=== PATIENT | male | born 1955 | race Caucasian/White ===

== ENCOUNTER → 2019-03-10 | Outpatient (CLI) | payer OTHER | END | disposition home or self-care (01) | LOC: RADMRIMAIN 20:51 | PROVIDERS: ATTEND Pediatrics | DX: Z53.9 Procedure and treatment not carried out, unspecified reason (principal) ==

== ENCOUNTER 2020-07-09 23:02 | Emergency (ER) | payer OTHER ==
--- NOTE | 2020-07-10 00:18 | XR ---
EXAMINATION TYPE: XR chest 2V DATE OF EXAM: 07/09/2020 COMPARISON: NONE HISTORY: Cough TECHNIQUE: 2 views FINDINGS: There is no heart failure nor confluent pneumonic infiltrate. Costophrenic angles are clear . Thoracic aorta is atheromatous. IMPRESSION: No active cardiopulmonary disease. Normal heart.
[2020-07-10] MEDS ORDERED: methylPREDNISolone SOD SUCCI 125 MG/2 ML VIAL IM STA (01:55)
--- NOTE | 2020-07-10 02:20 | ED ---
General Adult HPI - General Chief complaint: Upper Respiratory Infection Stated complaint: SOB Time Seen by Provider: 07/10/20 01:35 Source: patient, RN notes reviewed Mode of arrival: ambulatory Limitations: no limitations - History of Present Illness Initial comments: 65-year-old male with a past medical history of asthma presents to the emergency room for a chief complaint of asthma exacerbation. Patient states that about 5 days ago he developed a cough. States he has had wheezing increasing since that time. Patient states he feels like he has to cough up phlegm but is unable to. Patient reports the last time he felt like this he needed a steroid shot. Patient states he does have an inhaler but just recently got this filled again. Patient denies any fevers.Patient has no other complaints at this time including chest pain, abdominal pain, nausea or vomiting, headache, or visual changes. - Related Data Previous Rx's Medication Instructions Recorded Albuterol Inhaler [Ventolin Hfa 2 puff INHALATION RT-QID PRN #1 07/10/20 Inhaler] inhaler predniSONE 50 mg PO DAILY #5 tablet 07/10/20 Allergies Allergy/AdvReac Type Severity Reaction Status Date / Time No Known Allergies Allergy Verified 07/09/20 23:33 Review of Systems ROS Statement: Those systems with pertinent positive or pertinent negative responses have been documented in the HPI. ROS Other: All systems not noted in ROS Statement are negative. Past Medical History Past Medical History: Asthma History of Any Multi-Drug Resistant Organisms: None Reported Past Surgical History: Orthopedic Surgery Past Psychological History: No Psychological Hx Reported Smoking Status: Former smoker Past Alcohol Use History: None Reported Past Drug Use History: None Reported General Exam Limitations: no limitations General appearance: alert, in no apparent distress Head exam: Present: atraumatic, normocephalic, normal inspection Eye exam: Present: normal appearance, PERRL, EOMI. Absent: scleral icterus, conjunctival injection, periorbital swelling ENT exam: Present: normal exam, mucous membranes moist Neck exam: Present: normal inspection, full ROM. Absent: tenderness, meningismus, lymphadenopathy Respiratory exam: Present: wheezes (Patient has wheezing bilaterally in lower lung brito). Absent: respiratory distress, rales, rhonchi, stridor Cardiovascular Exam: Present: regular rate, normal rhythm, normal heart sounds. Absent: systolic murmur, diastolic murmur, rubs, gallop, clicks GI/Abdominal exam: Present: soft, normal bowel sounds. Absent: distended, tenderness, guarding, rebound, rigid Course Vital Signs 07/09/20 07/10/20 07/10/20 23:30 02:24 03:15 Temperature 98 F Pulse Rate 83 73 78 Respiratory 18 18 Rate Blood Pressure 170/120 177/100 O2 Sat by Pulse 98 92 L Oximetry 07/10/20 07/10/20 03:21 04:11 Temperature 98.1 F Pulse Rate 84 82 Respiratory 20 Rate Blood Pressure 190/89 O2 Sat by Pulse 94 L Oximetry Medical Decision Making - Medical Decision Making Patient is well-appearing. No respiratory distress. Vitals are stable. Patient is 98% on room air on presentation. Patient is hypertensive which he has a history of. This did improve throughout his stay. No chest pain. Patient is well-appearing on exam. No respiratory distress. Speaking in full sentences. A chest x-ray was obtained which showed no active cardiopulmonary disease. Normal heart. Covid test is negative. Patient was given IM Solu-Medrol. Also given DuoNeb. Patient will be discharged home to follow up with primary care. - Lab Data Lab Results 07/10/20 Range/Units 02:19 Coronavirus (PCR) Not Detected (Not Detectd) Disposition Clinical Impression: Asthma exacerbation Disposition: HOME SELF-CARE Condition: Good Instructions (If sedation given, give patient instructions): Asthma (ED) Additional Instructions: Please take steroid as directed. Use inhaler. Follow-up with your doctor in one to 2 days. If you have worsening shortness of breath return to the emergency room. Prescriptions: predniSONE 50 mg PO DAILY #5 tablet Albuterol Inhaler [Ventolin Hfa Inhaler] 2 puff INHALATION RT-QID PRN #1 inhaler PRN Reason: Shortness Of Breath Is patient prescribed a controlled substance at d/c from ED?: No Referrals: Bob Michelle MD [Primary Care Provider] - 1-2 days Time of Disposition: 02:55
[2020-07-10] MEDS ORDERED: IPRATROPIUM-ALBUTEROL 3 ML NEB INHALATION STA (03:03)
[2020-07-10 04:15] VITALS: BP 190/89; PULSE 82; RESP 20; TEMP 98.1
== END 2020-07-10 04:11 | disposition home or self-care (01) ==
LOC: EC 23:02
DX: J45.901 Unspecified asthma with (acute) exacerbation (principal); Z87.891 Personal history of nicotine dependence
CPT/HCPCS: 94640; 87635; 71046; 99285; 96372; J2930

== ENCOUNTER → 2020-11-14 | Outpatient (CLI) | payer OTHER ==
--- NOTE | 2020-11-14 21:58 | CT ---
EXAMINATION TYPE: CT brain wo con DATE OF EXAM: 11/14/2020 HISTORY: Hypertension, dizziness, low blood sugar CT DLP: 1149.80 mGycm. Automated Exposure Control for Dose Reduction was Utilized. TECHNIQUE: CT scan of the head is performed without contrast. COMPARISON: None. FINDINGS: There is no acute intracranial hemorrhage or midline shift identified. Ventricles and sul ci are within normal limits in size for patient's age. No suspicious opacification mastoid air cells bilaterally. Small focus of cerebrum in the left external auditory canal posterior wall axial image 1 1. The globes are intact and the visualized sinuses are clear. IMPRESSION: No acute intracranial hemorrhage or midline shift.
== END | disposition home or self-care (01) ==
LOC: RADCTMAIN 17:11
PROVIDERS: ATTEND Family Medicine
DX: I10 Essential (primary) hypertension (principal)
CPT/HCPCS: 70450

== ENCOUNTER 2021-01-03 07:06 | Day surgery (SDC) | payer OTHER ==
[2021-01-02 10:47] VITALS: BMI 28.3
[~2021-01-03 07:06] MED LIST: LACTATED RINGERS 1,000 ML IV SCH
[2021-01-03 07:49] VITALS: RESP 16; TEMP 97.5
[2021-01-03] MEDS ORDERED: LIDOCAINE 1% (10MG/ML) FOR IV START INTRADERMA ONE (08:01)
[2021-01-03 08:03] LABS: Glucose,Whole Blood 92 mg/dL (75-99)
[2021-01-03] MEDS ORDERED: PROPOFOL 10 MG/ML 20 ML VIAL IV ONE (08:12)
--- NOTE | 2021-01-03 08:29 | P.PCN ---
Date of Procedure: 01/03/21 Procedure(s) Performed: BRIEF HISTORY: Patient is a 65-year-old pleasant white male scheduled for an elective colonoscopy as a part of screening for colorectal neoplasia. PROCEDURE PERFORMED: Colonoscopy. PREOPERATIVE DIAGNOSIS: Screening for colon cancer. IV sedation per Anesthesia. PROCEDURE: After informed consent was obtained, the patient, was brought into the endoscopy unit. IV sedation was administered by Anesthesia under continuous monitoring. Digital rectal examination was normal. Initially the Olympus CF-160 flexible video colonoscope was then inserted in the rectum, gradually advanced into the cecum without any difficulty. Careful examination was performed as the scope was gradually being withdrawn. Ileocecal valve and the appendiceal orifice were visualized and appeared normal. Prep was excellent. Mucosa of the cecum, ascending colon, transverse colon, descending colon, sigmoid colon, and rectum appeared normal. Retroflexion was performed in the rectum and no lesions were seen. The patient tolerated the procedure well. IMPRESSION: Normal-appearing colon from rectum to cecum with no evidence of colorectal neoplasia . RECOMMENDATIONS: Findings of this examination were discussed with the patient as well as his family. He was advised to have a repeat screen colonoscopy in 10 years..
[2021-01-03 08:33] VITALS: PULSE 57
[2021-01-03 08:54] VITALS: BP 135/78
== END 2021-01-03 09:16 | disposition home or self-care (01) ==
LOC: ORWHC2ENDO 07:06
PROVIDERS: ATTEND Internal Medicine Gastroenterology
DX: Z12.11 Encounter for screening for malignant neoplasm of colon (principal); Z79.84 Long term (current) use of oral hypoglycemic drugs; Z79.899 Other long term (current) drug therapy; I10 Essential (primary) hypertension; E78.5 Hyperlipidemia, unspecified; J45.909 Unspecified asthma, uncomplicated; Z98.890 Other specified postprocedural states; Z97.2 Presence of dental prosthetic device (complete) (partial)
CPT/HCPCS: J2704; G0121

== ENCOUNTER → 2021-08-02 | Outpatient (CLI) | payer OTHER ==
--- NOTE | 2021-08-03 00:52 | XR ---
EXAMINATION TYPE: XR lumbar spine 2 or 3V DATE OF EXAM: 08/02/2021 COMPARISON: NONE INDICATION: Low back pain TECHNIQUE: 3 views of the lumbar spine FINDINGS: Minimal dextroscoliosis of the midlumbar spine. Preserved lumbar lordosis. No significant anterolisth esis or retrolisthesis. No definite vertebral body collapse or acute displaced fracture. Degenerative changes the lumbar spine with multilevel opposing plate osteophytosis. Degenerated L3-4, L4-5 and L5-S1 discs. Suspected bilateral L4-5 and L5-S1 facet osteoarthropathy. Arterial atheroscle rotic calcifications. IMPRESSION: Degenerative changes of the lumbar spine as described above. Further MRI assessment can be considered if clinically required.
== END | disposition home or self-care (01) ==
LOC: RADXRMAIN 12:50
PROVIDERS: ATTEND Family Medicine
DX: M47.816 Spondylosis without myelopathy or radiculopathy, lumbar region (principal)
CPT/HCPCS: 72100

== ENCOUNTER → 2022-12-30 | Outpatient (CLI) | payer MEDICARE, OTHER ==
--- NOTE | 2022-12-30 10:22 | US ---
EXAMINATION TYPE: US duplex aorta DATE OF EXAM: 12/30/2022 COMPARISON: NONE CLINICAL INDICATION: Male, 67 years old with history of Z87.891 PERSONAL HISTORY OF NICOTINE DEPENDE Z13.6; AAA screening TECHNIQUE: Multiple sonographic images of the abdominal aorta are obtained. FINDINGS: EXAM MEASUREMENTS: Abdominal Aorta: Proximal: 1.8 x 1.7 cm Mid: 2.0 x 1.9 cm Distal: 1.8 x 1.8 cm Bifurcation: BALDOMERO: 1.3 x 1.0 cm SHARON: 1.3 x 1.3 cm MEAL MILLER NOTES: No evidence of AAA IMPRESSION: No ultrasound evidence for abdominal aortic aneurysm.
== END | disposition home or self-care (01) ==
LOC: RADUSWWP 09:17
PROVIDERS: ATTEND Family Medicine
DX: Z13.6 Encounter for screening for cardiovascular disorders (principal); Z87.891 Personal history of nicotine dependence
CPT/HCPCS: 76706

== ENCOUNTER 2023-12-23 17:26 | Emergency (ER) | payer MEDICARE ==
[2023-12-23 17:35] VITALS: BP 145/94; PULSE 79; RESP 20; TEMP 97.9
--- NOTE | 2023-12-23 17:43 | ED ---
Lower Extremity Injury HPI - General Chief Complaint: Extremity Injury, Lower Stated Complaint: L leg lac Time Seen by Provider: 12/23/23 17:40 Source: patient, RN notes reviewed Mode of arrival: ambulatory Limitations: no limitations - History of Present Illness Initial Comments: 68-year-old male presents emergency department chief complaint of left lower extremity injury. Patient states that he was working on his trailer and was up on a step with rotted wood when the wood fell through when he injured his left leg. Patient denies falling forward, hitting his head, or loss consciousness at time of the event. He denies other extremity injuries at this time. Denies pain with ambulation or paresthesias. Denies blood thinner use. No other acute complaints at this time. - Related Data Home Medications Medication Instructions Recorded Confirmed Atorvastatin [Lipitor] 40 mg PO HS 01/02/21 12/23/23 Losartan Potassium 100 mg PO DAILY 01/02/21 12/23/23 metFORMIN HCL [Glucophage] 1,000 mg PO BID 01/02/21 12/23/23 Albuterol Inhaler [Ventolin Hfa 2 puff INHALATION RT-Q4H PRN 12/23/23 12/23/23 Inhaler] Budesonide/Formoterol Fumarate 2 puff INHALATION RT-BID 12/23/23 12/23/23 [Breyna 160-4.5 Mcg Inhaler] Omeprazole 40 mg PO DAILY 12/23/23 12/23/23 amLODIPine [Norvasc] 5 mg PO DAILY 12/23/23 12/23/23 Allergies Allergy/AdvReac Type Severity Reaction Status Date / Time No Known Allergies Allergy Verified 12/23/23 17:54 Review of Systems ROS Statement: Those systems with pertinent positive or pertinent negative responses have been documented in the HPI. ROS Other: All systems not noted in ROS Statement are negative. Past Medical History Past Medical History: Asthma, Diabetes Mellitus, GERD/Reflux, Hyperlipidemia, Hypertension Additional Past Medical History / Comment(s): Limited mobility/no lifting of left shoulder. 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 Past Anesthesia/Blood Transfusion Reactions: No Reported Reaction Past Psychological History: No Psychological Hx Reported Smoking Status: Former smoker Past Alcohol Use History: None Reported Past Drug Use History: None Reported - Past Family History Mother Family Medical History: No Reported History General Exam Limitations: no limitations General appearance: alert, in no apparent distress Neck exam: Present: normal inspection. Absent: tenderness, meningismus, lymphadenopathy Respiratory exam: Present: normal lung sounds bilaterally. Absent: respiratory distress, wheezes, rales, rhonchi, stridor Cardiovascular Exam: Present: regular rate, normal rhythm, normal heart sounds. Absent: systolic murmur, diastolic murmur, rubs, gallop, clicks GI/Abdominal exam: Present: soft, normal bowel sounds. Absent: distended, tenderness, guarding, rebound, rigid Left Lower Leg exam: Present: full ROM, tenderness, abrasion (lateral leg, bleeding controlled with multiple minor skin avulsions) Neurovascular tendon exam: Present: no vascular compromise. Absent: pulse deficit Gait: observed and normal Back exam: Present: normal inspection Skin exam: Present: warm, dry, intact, normal color. Absent: rash Course Vital Signs 12/23/23 17:31 Temperature 97.9 F Pulse Rate 79 Respiratory 20 Rate Blood Pressure 145/94 O2 Sat by Pulse 98 Oximetry Medical Decision Making - Medical Decision Making Was pt. sent in by a medical professional or institution (, PA, REAL ESTATE OFFICE MANAGER, urgent care, hospital, or long term...) When possible be specific @ -No Did you speak to anyone other than the patient for history (EMS, parent, family, police, friend...)? What history was obtained from this source @ -No Did you review nursing and triage notes (agree or disagree)? Why? @ -I reviewed and agree with nursing and triage notes Were old charts reviewed (outside hosp., previous admission, EMS record, old EKG, old radiological studies, urgent care reports/EKG's, long term records)? Report findings @ -No old charts were reviewed Differential Diagnosis (chest pain, altered mental status, abdominal pain women, abdominal pain men, vaginal bleeding, weakness, fever, dyspnea, syncope, headache, dizziness, GI bleed, back pain, seizure, CVA, palpatations, mental health, musculoskeletal)? @ -Differential Musculoskeletal Muscular strain, contusion, ligament sprain, fracture, arthritis, septic arthrit is, bursitis, cellulitis, muscle spasm, nerve compression, DVT, arterial occlusion, herpes zoster, electrolyte abnormality, tumor.... This is not meant to be in all inclusive list EKG interpreted by me (3pts min.). @ -None X-rays interpreted by me (1pt min.). @ -None done CT interpreted by me (1pt min.). @ -None done U/S interpreted by me (1pt. min.). @ -None done What testing was considered but not performed or refused? (CT, X-rays, U/S, labs)? Why? @ -X-ray was considered but deferred. Patient has full range of motion of the left lower extremity no pain with ambulation. There are no signs or symptoms concerning for osseous abnormality. Additionally, patient is very with deferring x-ray imaging at this time. What meds were considered but not given or refused? Why? @ -None Did you discuss the management of the patient with other professionals (professionals i.e. , PA, REAL ESTATE OFFICE MANAGER, lab, RT, psych nurse, social work program coordinator, bilingual administrative assistant, teacher, tank officer, medical case manager)? Give summary @ -No Was smoking cessation discussed for >3mins.? @ -No Was critical care preformed (if so, how long)? @ -No Were there social determinants of health that impacted care today? How? (Homelessness, low income, unemployed, alcoholism, drug addiction, transportation, low edu. Level, literacy, decrease access to med. care, penitentiary, rehab)? @ -No Was there de-escalation of care discussed even if they declined (Discuss DNR or withdrawal of care, Hospice)? DNR status @ -No What co-morbidities impacted this encounter? (DM, HTN, Smoking, COPD, CAD, Cancer, CVA, ARF, Chemo, Hep., AIDS, mental health diagnosis, sleep apnea, morbid obesity)? @ -None Was patient admitted / discharged? Hospital course, mention meds given and route, prescriptions, significant lab abnormalities, going to OR and other pertinent info. @ -Discharge. 68-year-old male with left lower extremity injury. On examination patient noted to have multiple skin avulsions of the left lateral leg. Nursing staff retrieved multiple splinters from the open wounds. Area was thoroughly cleansed with sterile water and Steri-Strips were placed over the avulsions. Patient was provided with Motrin and tetanus vaccination. All questions answered at bedside and strict return parameters eric with the patient he is verbalized understanding. Discussed with Dr. Gagnon Undiagnosed new problem with uncertain prognosis? @ -No Drug Therapy requiring intensive monitoring for toxicity (Heparin, Nitro, Insulin, Cardizem)? @ -No Were any procedures done? @ -No Diagnosis/symptom? @ -skin avulsion Acute, or Chronic, or Acute on Chronic? @ -Acute Uncomplicated (without systemic symptoms) or Complicated (systemic symptoms)? @ - uncomplicated Side effects of treatment? @ -No Exacerbation, Progression, or Severe Exacerbation? @ -No Poses a threat to life or bodily function? How? (Chest pain, [place], AR, pneumonia, PE, COPD, DKA, ARF, appy, cholecystitis, CVA, Diverticulitis, Homicidal, Suicidal, threat to staff... and all critical care pts) @ -No Disposition Clinical Impression: Abrasion, Skin avulsion Disposition: HOME SELF-CARE Condition: Good Instructions (If sedation given, give patient instructions): Abrasion (ED) Additional Instructions: Return to the emergency department for any new or worsening symptoms. Continue to keep area clean and dry. Is patient prescribed a controlled substance at d/c from ED?: No Referrals: Bharathi Han MD [Primary Care Provider] - 1-2 days Time of Disposition: 18:17
[2023-12-23] MEDS: IBUPROFEN 600 MG TAB PO STA (17:56)
[2023-12-23] MEDS: DIPH,PERTUS(ACELL)TETVAC-LF 0.5 ML VIAL IM ONE (17:57)
== END 2023-12-23 18:28 | disposition home or self-care (01) ==
LOC: EC 17:26
DX: S81.819A Laceration without foreign body, unspecified lower leg, initial encounter
CPT/HCPCS: 90471; 90715; 99283

== ENCOUNTER 2023-12-30 16:45 | Emergency (ER) | payer MEDICARE ==
[2023-12-30 16:50] VITALS: RESP 18
--- NOTE | 2023-12-30 17:02 | ED ---
Extremity Problem HPI - General Chief complaint: Extremity Problem,Nontraumatic Stated complaint: L Leg Swelling Time Seen by Provider: 12/30/23 17:01 Source: patient, RN notes reviewed Mode of arrival: ambulatory Limitations: no limitations - History of Present Illness Initial comments: 68-year-old male presented to the ER with a chief complaint of left lower extremity swelling. Patient was seen here on 12-23-2023 for a left lower extremity injury. Patient states he was walking on his utility trailer when one of the wood boards broke causing his leg to go through the board. He has multiple abrasions. Wounds were approximated with Steri-Strips. He was not started on antibiotics at that time. Patient states that the past 2 days he has noticed increasing swelling to his foot and ankle. He states ankle and distal calf is warm, tender to touch and swollen. Denies any fevers or chills. Denies any new injuries. No history of blood clots. No blood thinner use. Patient is a type II diabetic. Tetanus was updated at last visit. No other complaints. No history of MRSA infections. - Related Data Home Medications Medication Instructions Recorded Confirmed Atorvastatin [Lipitor] 40 mg PO HS 01/02/21 12/23/23 Losartan Potassium 100 mg PO DAILY 01/02/21 12/23/23 metFORMIN HCL [Glucophage] 1,000 mg PO BID 01/02/21 12/23/23 Albuterol Inhaler [Ventolin Hfa 2 puff INHALATION RT-Q4H PRN 12/23/23 12/23/23 Inhaler] Budesonide/Formoterol Fumarate 2 puff INHALATION RT-BID 12/23/23 12/23/23 [Breyna 160-4.5 Mcg Inhaler] Omeprazole 40 mg PO DAILY 12/23/23 12/23/23 amLODIPine [Norvasc] 5 mg PO DAILY 12/23/23 12/23/23 Previous Rx's Medication Instructions Recorded Cephalexin [Keflex] 500 mg PO Q6HR #40 cap 12/30/23 Sulfamethox-Tmp 800-160Mg [Bactrim 1 each PO Q12HR #20 tab 12/30/23 Ds] Allergies Allergy/AdvReac Type Severity Reaction Status Date / Time No Known Allergies Allergy Verified 12/30/23 16:49 Review of Systems ROS Statement: Those systems with pertinent positive or pertinent negative responses have been documented in the HPI. ROS Other: All systems not noted in ROS Statement are negative. Past Medical History Past Medical History: Asthma, Diabetes Mellitus, GERD/Reflux, Hyperlipidemia, Hypertension Additional Past Medical History / Comment(s): Limited mobility/no lifting of left shoulder. 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 Past Anesthesia/Blood Transfusion Reactions: No Reported Reaction Past Psychological History: No Psychological Hx Reported Smoking Status: Former smoker Past Alcohol Use History: None Reported Past Drug Use History: None Reported - Past Family History Mother Family Medical History: No Reported History General Exam Limitations: no limitations General appearance: alert, in no apparent distress Respiratory exam: Present: normal lung sounds bilaterally. Absent: respiratory distress, wheezes, rales, rhonchi, stridor Cardiovascular Exam: Present: regular rate, normal rhythm, normal heart sounds. Absent: systolic murmur, diastolic murmur, rubs, gallop, clicks Extremities exam: Present: other (2+ left dorsalis pedis and posterior tibialis pulses. Nonpitting edema to left ankle traveling proximally. There is healing abrasions with Steri-Strips in place to lateral aspect of calf and mehta. There is mild surrounding erythema leg is warm to touch. No drainage present. Full active ROM) Skin exam: Present: warm, dry, intact, normal color. Absent: rash Course Vital Signs 12/30/23 12/30/23 16:47 18:05 Temperature 97.8 F 98 F Pulse Rate 67 64 Respiratory 18 18 Rate Blood Pressure 118/84 150/80 O2 Sat by Pulse 99 97 Oximetry Medical Decision Making - Medical Decision Making Was pt. sent in by a medical professional or institution (, PA, CREDENTIALS SPECIALIST, urgent care, hospital, or retirement...) When possible be specific @ -No Did you speak to anyone other than the patient for history (EMS, parent, family, police, friend...)? What history was obtained from this source @ -No Did you review nursing and triage notes (agree or disagree)? Why? @ -I reviewed and agree with nursing and triage notes Were old charts reviewed (outside hosp., previous admission, EMS record, old EKG, old radiological studies, urgent care reports/EKG's, retirement records)? Report findings @ -I reviewed ER visit from 12-23-2023. Patient seen here after left leg falling through utility trailer. Tetanus updated at that time. Patient discharged after treatment of abrasions and skin tears. Differential Diagnosis (chest pain, altered mental status, abdominal pain women, abdominal pain men, vaginal bleeding, weakness, fever, dyspnea, syncope, headache, dizziness, GI bleed, back pain, seizure, CVA, palpatations, mental health, musculoskeletal)? @ -Differential Musculoskeletal: Muscular strain, contusion, ligament sprain, fracture, arthritis, septic arthritis, bursitis, cellulitis, muscle spasm, nerve compression, DVT, arterial occlusion, herpes zoster, electrolyte abnormality, tumor.... This is not meant to be in all inclusive list EKG interpreted by me (3pts min.). @ -None done X-rays interpreted by me (1pt min.). @ -None done CT interpreted by me (1pt min.). @ -None done U/S interpreted by me (1pt. min.). @ -Ultrasound venous Doppler left lower extremity negative for acute evidence of DVT. What testing was considered but not performed or refused? (CT, X-rays, U/S, labs)? Why? @ -None What meds were considered but not given or refused? Why? @ -None Did you discuss the management of the patient with other professionals (professionals i.e. , PA, CREDENTIALS SPECIALIST, lab, RT, psych nurse, psychiatric social worker supervisor, counter help, teacher, traffic officer, home health care case manager)? Give summary @ -No Was smoking cessation discussed for >3mins.? @ -No Was critical care preformed (if so, how long)? @ -No Were there social determinants of health that impacted care today? How? (Homelessness, low income, unemployed, alcoholism, drug addiction, transportation, low edu. Level, literacy, decrease access to med. care, correction, rehab)? @ -No Was there de-escalation of care discussed even if they declined (Discuss DNR or withdrawal of care, Hospice)? DNR status @ -No What co-morbidities impacted this encounter? (DM, HTN, Smoking, COPD, CAD, Cancer, CVA, ARF, Chemo, Hep., AIDS, mental health diagnosis, sleep apnea, morbid obesity)? @ -Type 2 diabetes mellitus Was patient admitted / discharged? Hospital course, mention meds given and route, prescriptions, significant lab abnormalities, going to OR and other pertinent info. @ -Discharge. 68-year-old male presented to ER with a chief complaint of left ankle pain and swelling. Patient was seen here 7 days prior after his left lower extremity went through a utility trailer. Tetanus was updated at that visit. History and physical exam completed. Vitals within limits. Patient in no signs of acute distress and nontoxic-appearing. Exam remarkable for nonpitting edema to left ankle. There is multiple healing abrasions and skin tear to lateral left calf and mehta. There is surrounding erythema, warmth and tenderness. Left lower extremity neurovascular intact. Ultrasound venous Doppler obtained to rule out DVT which is negative. Due to physical exam findings patient will be treated for cellulitis. Bactrim and Keflex prescribed, first dose in the ER. Strict return parameters discussed. Advise close follow- up with PCP. Patient verbally expressed understanding and agreement with care plan. Patient discharged in stable condition. Case discussed with ED attending, Dr. Keller. Undiagnosed new problem with uncertain prognosis? @ -No Drug Therapy requiring intensive monitoring for toxicity (Heparin, Nitro, Insulin, Cardizem)? @ -No Were any procedures done? @ -No Diagnosis/symptom? @ -Cellulitis Acute, or Chronic, or Acute on Chronic? @ -Acute Uncomplicated (without systemic symptoms) or Complicated (systemic symptoms)? @ -Uncomplicated Side effects of treatment? @ -No Exacerbation, Progression, or Severe Exacerbation? @ -No Poses a threat to life or bodily function? How? (Chest pain, [place], [place], pneumonia, PE, COPD, DKA, ARF, appy, cholecystitis, CVA, Diverticulitis, Homicidal, Suicidal, threat to staff... and all critical care pts) @ -No - Radiology Data Radiology results: report reviewed, image reviewed Disposition Clinical Impression: Cellulitis Disposition: HOME SELF-CARE Condition: Stable Instructions (If sedation given, give patient instructions): Cellulitis (ED) Additional Instructions: Complete full course of Keflex and Bactrim. Follow-up with PCP in the next 1 to 2 days. Return to the ER for any new or worsening concerns. Prescriptions: Sulfamethox-Tmp 800-160Mg [Bactrim Ds] 1 each PO Q12HR #20 tab Cephalexin [Keflex] 500 mg PO Q6HR #40 cap Is patient prescribed a controlled substance at d/c from ED?: No Referrals: Bharathi Han MD [Primary Care Provider] - 1-2 days Time of Disposition: 17:48
[2023-12-30] MEDS: IBUPROFEN 600 MG TAB PO STA (17:14)
--- NOTE | 2023-12-30 17:37 | US ---
EXAMINATION TYPE: US venous doppler duplex LE LT DATE OF EXAM: 12/30/2023 5:01 PM COMPARISON: NONE CLINICAL INDICATION: Male, 68 years old with history of ankle swelling; Ankle redness and swelling. P atient states injury to left ankle last week. Patient is not on blood thinners, no hx of DVT. SIDE PERFORMED: Left TECHNIQUE: The lower extremity deep venous system is examined utilizing real time linear array sonog jose with graded compression, doppler sonography and color-flow sonography. VESSELS IMAGED: Common Femoral Vein Deep Femoral Vein Greater Saphenous Vein * Femoral Vein Popliteal Vein Small Saphenous Vein * Proximal Calf Veins (* superficial vessels) Left Leg: Negative for DVT today IMPRESSION: 1. Left lower extremity ultrasound negative for deep venous thrombosis. [facility], , 12/30/2023 5:35 PM
[2023-12-30] MEDS: SULFAMETHOX-TMP 800-160MG 1 EACH TAB PO STA (18:02)
[2023-12-30] MEDS: CEPHALEXIN 500 MG CAP PO STA (18:02)
[2023-12-30 18:07] VITALS: BP 150/80; PULSE 64; TEMP 98
== END 2023-12-30 18:12 | disposition home or self-care (01) ==
LOC: EC 16:45
DX: R22.42 Localized swelling, mass and lump, left lower limb
CPT/HCPCS: 99283

== ENCOUNTER → 2024-01-01 | Outpatient (CLI) | payer MEDICARE ==
--- NOTE | 2024-01-02 14:44 | XR ---
EXAMINATION TYPE: XR tibia fibula 2 views LT DATE OF EXAM: 01/01/2024 Comparison: None Clinical History: 68-year-old male, pain after S89.92XA UNSPECIFIED INJURY OF LEFT LOWER LEG, INI Findings: Degenerative spurring inferior aspect of both medial and lateral malleoli. Additional degenerative sp urring both anterior and posterior aspects of the tibiotalar joint. Dominant dorsal mid foot degenera tive spurring on the lateral view. Tricompartmental degenerative spurring at the knee. Trace knee charlee nt effusion. Extensor mechanism is intact. Moderate sized plantar heel spur and small posterior calca rachele spur. Some focal cortical thickening midshaft pretibial region. Some generalized soft tissue swelling of the leg. Some irregularity of the skin surface lateral aspec t of the distal third leg probably related to skin injury. No underlying acute fracture. Impression: 1. Generalized soft tissue swelling. Some abrasions and superficial soft tissue injury suspected zainab g the lateral aspect of the distal third leg. 2. No underlying acute osseous amount is seen. 3. There is some focal cortical protuberance along the midshaft pretibial region probably chronic for the patient. Consider 3 month follow-up radiograph to ensure a stable appearance here. 4. Tricompartmental degenerative spurring. Additional degenerative spurring at the tibiotalar joint. Posterior and plantar heel spurs. [facility], , 01/02/2024 2:42 PM
== END | disposition home or self-care (01) ==
LOC: RADXRMAIN 14:28
DX: S89.92XA Unspecified injury of left lower leg, initial encounter

== ENCOUNTER 2024-03-20 20:10 | Emergency (ER) | payer MEDICARE ==
[2024-03-20 20:18] VITALS: RESP 18
[2024-03-20] MEDS: methylPREDNISolone SOD SUCCI 125 MG/2 ML VIAL IM ONE (21:05)
--- NOTE | 2024-03-20 21:25 | ED ---
URI HPI - General Chief Complaint: Upper Respiratory Infection Stated Complaint: cough Time Seen by Provider: 03/20/24 20:50 Source: patient, RN notes reviewed Mode of arrival: ambulatory Limitations: no limitations - History of Present Illness Initial Comments: 68-year-old male with history of asthma presenting to the ER chief complaint of cough x 4 days. States he has had "the flu" for the past 4 days with nasal congestion and subjective fevers, however reports cough is not going away. Also states he has history of asthma and feels as though the cough is flaring up his asthma. He takes his Symbicort and albuterol for his asthma with minimal relief. Denies shortness of breath or chest pain. He is a non-smoker. Other past medical history includes hyperlipidemia, hypertension, and diabetes. - Related Data Home Medications Medication Instructions Recorded Confirmed Atorvastatin [Lipitor] 40 mg PO HS 01/02/21 12/23/23 Losartan Potassium 100 mg PO DAILY 01/02/21 12/23/23 metFORMIN HCL [Glucophage] 1,000 mg PO BID 01/02/21 12/23/23 Albuterol Inhaler [Ventolin Hfa 2 puff INHALATION RT-Q4H PRN 12/23/23 12/23/23 Inhaler] Budesonide/Formoterol Fumarate 2 puff INHALATION RT-BID 12/23/23 12/23/23 [Breyna 160-4.5 Mcg Inhaler] Omeprazole 40 mg PO DAILY 12/23/23 12/23/23 amLODIPine [Norvasc] 5 mg PO DAILY 12/23/23 12/23/23 Previous Rx's Medication Instructions Recorded Cephalexin [Keflex] 500 mg PO Q6HR #40 cap 12/30/23 Sulfamethox-Tmp 800-160Mg [Bactrim 1 each PO Q12HR #20 tab 12/30/23 Ds] guaiFENesin 400 mg PO Q4H PRN #30 tab 03/20/24 predniSONE [Deltasone] 40 mg PO DAILY 5 Days #10 tab 03/20/24 Allergies Allergy/AdvReac Type Severity Reaction Status Date / Time No Known Allergies Allergy Verified 03/20/24 20:18 Review of Systems ROS Statement: Those systems with pertinent positive or pertinent negative responses have been documented in the HPI. ROS Other: All systems not noted in ROS Statement are negative. Past Medical History Past Medical History: Asthma, Diabetes Mellitus, GERD/Reflux, Hyperlipidemia, Hypertension Additional Past Medical History / Comment(s): Limited mobility/no lifting of left shoulder. 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 Past Anesthesia/Blood Transfusion Reactions: No Reported Reaction Past Psychological History: No Psychological Hx Reported Smoking Status: Former smoker Past Alcohol Use History: None Reported Past Drug Use History: None Reported - Past Family History Mother Family Medical History: No Reported History General Exam Limitations: no limitations General appearance: alert, in no apparent distress Head exam: Present: atraumatic, normocephalic, normal inspection Eye exam: Present: normal appearance, PERRL, EOMI. Absent: scleral icterus, co njunctival injection, periorbital swelling ENT exam: Present: normal exam, mucous membranes moist Respiratory exam: Present: normal lung sounds bilaterally, wheezes (Expiratory wheezing in all lung brito bilaterally). Absent: respiratory distress, rales, rhonchi, stridor Cardiovascular Exam: Present: regular rate, normal rhythm, normal heart sounds. Absent: systolic murmur, diastolic murmur, rubs, gallop, clicks Neurological exam: Present: alert, oriented X3 Psychiatric exam: Present: normal affect, normal mood Skin exam: Present: warm, dry, intact, normal color. Absent: rash Course Vital Signs 03/20/24 20:16 Temperature 98 F Pulse Rate 92 Respiratory 18 Rate Blood Pressure 146/71 O2 Sat by Pulse 97 Oximetry Medical Decision Making - Medical Decision Making Was pt. sent in by a medical professional or institution (, PA, LOCKSTITCH MACHINE OPERATOR, urgent care, hospital, or [place] [facility] facility...) When possible be specific @ -No Did you speak to anyone other than the patient for history (EMS, parent, family, police, friend...)? What history was obtained from this source @ -No Did you review nursing and triage notes (agree or disagree)? Why? @ -I reviewed and agree with nursing and triage notes Were old charts reviewed (outside hosp., previous admission, EMS record, old EKG, old radiological studies, urgent care reports/EKG's, [place] health [facility] facility records)? Report findings @ -No old charts were reviewed Differential Diagnosis (chest pain, altered mental status, abdominal pain women, abdominal pain men, vaginal bleeding, weakness, fever, dyspnea, syncope, headache, dizziness, GI bleed, back pain, seizure, CVA, palpatations, mental health, musculoskeletal)? @ -Asthma exacerbation, viral URI, bronchitis, pneumonia, COVID, influenza EKG interpreted by me (3pts min.). @ -None X-rays interpreted by me (1pt min.). @ -Chest x-ray reveals no acute process CT interpreted by me (1pt min.). @ -None done U/S interpreted by me (1pt. min.). @ -None done What testing was considered but not performed or refused? (CT, X-rays, U/S, labs)? Why? @ -None What meds were considered but not given or refused? Why? @ -None Did you discuss the management of the patient with other professionals (professionals i.e. , PA, LOCKSTITCH MACHINE OPERATOR, lab, RT, psych nurse, social sciences professor, printed circuit photographer, teacher, railroad police officer, case planner)? Give summary @ -No Was smoking cessation discussed for >3mins.? @ -No Was critical care preformed (if so, how long)? @ -No Were there social determinants of health that impacted care today? How? (Homelessness, low income, unemployed, alcoholism, drug addiction, transportation, low edu. Level, literacy, decrease access to med. care, long term, rehab)? @ -No Was there de-escalation of care discussed even if they declined (Discuss DNR or withdrawal of care, Hospice)? DNR status @ -No What co-morbidities impacted this encounter? (DM, HTN, Smoking, COPD, CAD, Cancer, CVA, ARF, Chemo, Hep., AIDS, mental health diagnosis, sleep apnea, morbid obesity)? @ -None Was patient admitted / discharged? Hospital course, mention meds given and route, prescriptions, significant lab abnormalities, going to OR and other pertinent info. @ -Discharge. This is a 68-year-old male with history of asthma presenting for cough x 4 days. Patient is afebrile satting 97% on room air. No sign of respiratory distress. There is diffuse expiratory wheezing in all lung brito bilaterally. Patient is given dose of Solu-Medrol. Chest x-ray reveals no acute process. Patient is COVID-positive, influenza and RSV negative. Results discussed with patient. Appropriate return precautions and follow-up care discussed. Prescribed steroids to begin tomorrow. Case discussed with my ED attending Dr. Plummer Undiagnosed new problem with uncertain prognosis? @ -No Drug Therapy requiring intensive monitoring for toxicity (Heparin, Nitro, Insulin, Cardizem)? @ -No Were any procedures done? @ -No Diagnosis/symptom? @ -COVID-19 Acute, or Chronic, or Acute on Chronic? @ -Acute Uncomplicated (without systemic symptoms) or Complicated (systemic symptoms)? @ -Uncomplicated Side effects of treatment? @ -No Exacerbation, Progression, or Severe Exacerbation? @ -No Poses a threat to life or bodily function? How? (Chest pain, [place], [place], pneumonia, PE, COPD, DKA, ARF, appy, cholecystitis, CVA, Diverticulitis, Homicidal, Suicidal, threat to staff... and all critical care pts) @ -Unlikely at this time - Lab Data Lab Results 03/20/24 Range/Units 21:10 Influenza Type A (PCR) Not Detected (Not Detectd) Influenza Type B (PCR) Not Detected (Not Detectd) RSV (PCR) Not Detected (Not Detectd) SARS-CoV-2 (PCR) Detected A (Not Detectd) Disposition Clinical Impression: COVID-19 Disposition: HOME SELF-CARE Condition: Stable Instructions (If sedation given, give patient instructions): How to Recover from COVID-19 at Home (ED) Additional Instructions: Start steroids tomorrow. Please return to the Emergency Department if symptoms worsen or any other concerns. Prescriptions: predniSONE [Deltasone] 40 mg PO DAILY 5 Days #10 tab guaiFENesin 400 mg PO Q4H PRN #30 tab PRN Reason: Cough Is patient prescribed a controlled substance at d/c from ED?: No Referrals: Bharathi Han MD [Primary Care Provider] - 1-2 days Time of Disposition: 22:37
--- NOTE | 2024-03-20 21:27 | XR ---
EXAMINATION TYPE: XR chest 2V DATE OF EXAM: 03/20/2024 9:20 PM COMPARISON: Chest radiograph 07/09/2020. CLINICAL INDICATION: Male, 68 years old with history of cough; [facility] TECHNIQUE: XR chest 2V Frontal and lateral views of the chest. FINDINGS: Lungs/Pleura: There is no evidence of pleural effusion, focal consolidation, or pneumothorax. Pulmonary vascularity: Unremarkable. Heart/mediastinum: Cardiomediastinal silhouette is unremarkable. Musculoskeletal: No acute osseous pathology. Other findings: None IMPRESSION: No acute cardiopulmonary disease/process. [facility], , 03/20/2024 9:24 PM
[2024-03-20] MEDS: IPRATROPIUM-ALBUTEROL 3 ML NEB INHALATION STA (22:13)
[2024-03-20 22:58] VITALS: BP 138/73; PULSE 81; TEMP 98
== END 2024-03-20 22:58 | disposition home or self-care (01) ==
LOC: EC 20:10
DX: U07.1 COVID-19 (principal); Z87.891 Personal history of nicotine dependence
CPT/HCPCS: 87636; 71046; 99283; 96372; J2919

== ENCOUNTER 2024-03-25 13:14 | Emergency (ER) | payer MEDICARE ==
[2024-03-25 13:30] VITALS: RESP 18
--- NOTE | 2024-03-25 14:21 | ED ---
URI HPI - General Chief Complaint: Upper Respiratory Infection Stated Complaint: Covid+,cough Time Seen by Provider: 03/25/24 13:29 Source: patient, RN notes reviewed Mode of arrival: ambulatory Limitations: no limitations - History of Present Illness Initial Comments: This is a 68-year-old male presenting with ongoing congested cough x 7 days. Patient was seen in this ER on 03 20 where he was diagnosed with COVID-19. Was prescribed prednisone and guaifenesin with ongoing congested cough but is not clearing. States sputum is stuck and will not come up despite use of prednisone and guaifenesin. Denies fever, chills, chest pain, dyspnea, dizziness, abdominal pain, N/V/D. MD Complaint: cough Onset/Timin -: days(s) Consistency: constant Associated Symptoms: denies other symptoms Treatments Prior to Arrival: "cold medicine" - Related Data Home Medications Medication Instructions Recorded Confirmed Atorvastatin [Lipitor] 40 mg PO HS 01/02/21 12/23/23 Losartan Potassium 100 mg PO DAILY 01/02/21 12/23/23 metFORMIN HCL [Glucophage] 1,000 mg PO BID 01/02/21 12/23/23 Albuterol Inhaler [Ventolin Hfa 2 puff INHALATION RT-Q4H PRN 12/23/23 12/23/23 Inhaler] Budesonide/Formoterol Fumarate 2 puff INHALATION RT-BID 12/23/23 12/23/23 [Breyna 160-4.5 Mcg Inhaler] Omeprazole 40 mg PO DAILY 12/23/23 12/23/23 amLODIPine [Norvasc] 5 mg PO DAILY 12/23/23 12/23/23 Previous Rx's Medication Instructions Recorded Cephalexin [Keflex] 500 mg PO Q6HR #40 cap 12/30/23 Sulfamethox-Tmp 800-160Mg [Bactrim 1 each PO Q12HR #20 tab 12/30/23 Ds] guaiFENesin 400 mg PO Q4H PRN #30 tab 03/20/24 predniSONE [Deltasone] 40 mg PO DAILY 5 Days #10 tab 03/20/24 Azithromycin [Zithromax Z Pack] 0 tab PO DIRECTED #6 tab 03/25/24 guaiFENesin [guaiFENesin ER] 1,200 mg PO Q12H PRN #30 tab 03/25/24 Allergies Allergy/AdvReac Type Severity Reaction Status Date / Time No Known Allergies Allergy Verified 03/20/24 20:18 Review of Systems ROS Statement: Those systems with pertinent positive or pertinent negative responses have been documented in the HPI. ROS Other: All systems not noted in ROS Statement are negative. Past Medical History Past Medical History: Asthma, Diabetes Mellitus, GERD/Reflux, Hyperlipidemia, Hypertension Additional Past Medical History / Comment(s): Limited mobility/no lifting of left shoulder. 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 Past Anesthesia/Blood Transfusion Reactions: No Reported Reaction Past Psychological History: No Psychological Hx Reported Smoking Status: Former smoker Past Alcohol Use History: None Reported Past Drug Use History: None Reported - Past Family History Mother Family Medical History: No Reported History General Exam Limitations: no limitations Course Vital Signs 03/25/24 03/25/24 13:25 14:01 Temperature 98.3 F Pulse Rate 105 H Respiratory 18 18 Rate Blood Pressure 140/93 O2 Sat by Pulse 97 Oximetry Medical Decision Making - Medical Decision Making Was pt. sent in by a medical professional or institution (, PA, LEAD SOFTWARE ENGINEER, urgent care, hospital, or residential...) When possible be specific @ -[No] Did you speak to anyone other than the patient for history (EMS, parent, family, police, friend...)? What history was obtained from this source @ -[No] Did you review nursing and triage notes (agree or disagree)? Why? @ -[I reviewed and agree with nursing and triage notes] Were old charts reviewed (outside hosp., previous admission, EMS record, old EKG, old radiological studies, urgent care reports/EKG's, residential records)? Report findings @ -[No old charts were reviewed] Differential Diagnosis (chest pain, altered mental status, abdominal pain women, abdominal pain men, vaginal bleeding, weakness, fever, dyspnea, syncope, headache, dizziness, GI bleed, back pain, seizure, CVA, palpatations, mental health, musculoskeletal)? @ -Differential Fever: Pneumonia, viral URI, Covis-19, endocarditis, myocarditis, pericarditis, otitis, sinusitis, peritonsillar Abscess, retropharyngeal Abscess, epiglottitis, peritonitis, appendicitis, Carolyne cystitis, diverticulitis, hepatitis, colitis, UTI, PID, TOA, pyelonephritis, prostatitis, epididymitis, meningitis, encephalitis, pulmonary embolism, CVA, thyroid storm, pancreatitis, adrenal crisis, cavernous sinus thrombosis, this is not meant to be an all-inclusive list. EKG interpreted by me (3pts min.). @ -Not done X-rays interpreted by me (1pt min.). @ -[None done] CT interpreted by me (1pt min.). @ -[None done] U/S interpreted by me (1pt. min.). @ -[None done] What testing was considered but not performed or refused? (CT, X-rays, U/S, labs)? Why? @ -[None] What meds were considered but not given or refused? Why? @ -[None] Did you discuss the management of the patient with other professionals (prof angulo i.e. , PA, LEAD SOFTWARE ENGINEER, lab, RT, psych nurse, social science manager, attendant sales, teacher, juvenile correctional officer, employment evaluator/case manager)? Give summary @ -[No] Was smoking cessation discussed for >3mins.? @ -[No] Was critical care preformed (if so, how long)? @ -[No] Were there social determinants of health that impacted care today? How? (Homelessness, low income, unemployed, alcoholism, drug addiction, transportation, low edu. Level, literacy, decrease access to med. care, nursing home, rehab)? @ -[No] Was there de-escalation of care discussed even if they declined (Discuss DNR or withdrawal of care, Hospice)? DNR status @ -[No] What co-morbidities impacted this encounter? (DM, HTN, Smoking, COPD, CAD, Cancer, CVA, ARF, Chemo, Hep., AIDS, mental health diagnosis, sleep apnea, morbid obesity)? @ -[None] Was patient admitted / discharged? Hospital course, mention meds given and route, prescriptions, significant lab abnormalities, going to OR and other pertinent info. @ -[hospital course] Undiagnosed new problem with uncertain prognosis? @ -[No] Drug Therapy requiring intensive monitoring for toxicity (Heparin, Nitro, Insulin, Cardizem)? @ -[No] Were any procedures done? @ -[No] Diagnosis/symptom? @ -[default] Acute, or Chronic, or Acute on Chronic? @ -Acute Uncomplicated (without systemic symptoms) or Complicated (systemic symptoms)? @ -Uncomplicated Side effects of treatment? @ -[No] Exacerbation, Progression, or Severe Exacerbation? @ -[No] Poses a threat to life or bodily function? How? (Chest pain, [place], NH, pneumonia, PE, COPD, DKA, ARF, appy, cholecystitis, CVA, Diverticulitis, Homicidal, Suicidal, threat to staff... and all critical care pts) @ -[No] - Lab Data Lab Results 03/25/24 Range/Units 14:20 Influenza Type A (PCR) Not Detected (Not Detectd) Influenza Type B (PCR) Not Detected (Not Detectd) RSV (PCR) Not Detected (Not Detectd) SARS-CoV-2 (PCR) Detected A (Not Detectd) Disposition Clinical Impression: COVID-19, Tracheobronchitis Disposition: HOME SELF-CARE Condition: Good Instructions (If sedation given, give patient instructions): COVID-19 (Coronavirus Disease 2019) (ED) Prescriptions: guaiFENesin [guaiFENesin ER] 1,200 mg PO Q12H PRN #30 tab PRN Reason: Cough Azithromycin [Zithromax Z Pack] 0 tab PO DIRECTED #6 tab Is patient prescribed a controlled substance at d/c from ED?: No Referrals: Bharathi Han MD [Primary Care Provider] - 1-2 days Time of Disposition: 15:58
--- NOTE | 2024-03-25 14:42 | XR ---
EXAMINATION TYPE: XR chest 2V DATE OF EXAM: 03/25/2024 2:27 PM COMPARISON: Chest radiographs from 03/20/2024 TECHNIQUE: XR chest 2V Frontal and lateral views of the chest. CLINICAL INDICATION:Male, 68 years old with history of Cough; FINDINGS: Lungs/Pleura: There is no evidence of pleural effusion, focal consolidation, or pneumothorax. Pulmonary vascularity: Unremarkable. Heart/mediastinum: Cardiomediastinal silhouette is unremarkable. Musculoskeletal: Multiple level degenerative disc disease changes seen throughout the spine. IMPRESSION: No acute cardiopulmonary disease/process. No significant change from prior exam. [facility], , 03/25/2024 2:39 PM
[2024-03-25] MEDS: ALBUTEROL HFA INHALER INHALATION STA (16:01)
[2024-03-25] MEDS: IPRATROPIUM-ALBUTEROL 3 ML NEB INHALATION STA (16:05)
[2024-03-25 16:14] VITALS: BP 136/90; PULSE 96; TEMP 98
== END 2024-03-25 16:13 | disposition home or self-care (01) ==
LOC: EC 13:14
DX: U07.1 COVID-19 (principal); J40 Bronchitis, not specified as acute or chronic; Z87.891 Personal history of nicotine dependence
CPT/HCPCS: 71046; 87636; 94640; 99283

== ENCOUNTER → 2024-04-20 | Outpatient (CLI) | payer MEDICARE ==
--- NOTE | 2024-04-20 15:05 | XR ---
Left tibia and fibula HISTORY: Pain. COMPARISON: 01/01/2024. TECHNIQUE: 4 views left tibia and fibula were obtained. FINDINGS: There is no fracture, focal intraosseous abnormality, cortical destruction or periosteal re action. The soft tissues are unremarkable. The mild cortical thickening/protuberance in the mid tibia is stable and is likely benign chronic abn ormality. IMPRESSION: No interval change. No significant abnormality. [facility], , 04/20/2024 3:03 PM
== END | disposition home or self-care (01) ==
LOC: RADXRMAIN 14:38
PROVIDERS: ATTEND Internal Medicine
DX: S89.92XA Unspecified injury of left lower leg, initial encounter (principal); X58.XXXA Exposure to other specified factors, initial encounter